=== PATIENT | female | born 2005 | race Caucasian/White ===

== ENCOUNTER 2024-07-16 14:26 | Emergency (ER) | payer OTHER ==
[2024-07-16] MEDS ORDERED: Rabies Vaccine Human 2.5 UNITS VIAL ONE (15:01)
[2024-07-16] MEDS ORDERED: Rabies Immune Globulin/PF 300 UNITS/ML VIAL ONE ×2 (15:01→15:40)
== END 2024-07-16 16:05 | disposition home or self-care (01) ==
LOC: ERS 14:26
DX: S61.230A Puncture wound without foreign body of right index finger without damage to nail, initial encounter (principal); S61.031A Puncture wound without foreign body of right thumb without damage to nail, initial encounter; W55.01XA Bitten by cat, initial encounter
CPT/HCPCS: 90375; 90471; 90675; 96372

== ENCOUNTER → 2024-07-19 | Day surgery (SDC) | payer OTHER ==
[~2024-07-19] MED LIST: Rabies Vaccine Human 2.5 UNITS VIAL ONE
== END ==
LOC: ER/OP 11:48 → ERS 11:48
PROVIDERS: ATTEND Radiology Vascular & Interventional Radiology
DX: Z29.14 Encounter for prophylactic rabies immune globulin (principal)
CPT/HCPCS: 90675

== ENCOUNTER → 2024-07-23 | Day surgery (SDC) | payer OTHER | LOC: ER/OP 14:59 | PROVIDERS: ATTEND Student in an Organized Health Care Education/Training Program | DX: Z29.14 Encounter for prophylactic rabies immune globulin (principal) | CPT/HCPCS: 90675 ==